=== PATIENT | male | born 1985 | race Caucasian/White ===

== ENCOUNTER 2018-05-24 09:41 | Emergency (ER) | payer OTHER ==
[~2018-05-24] VITALS: Ht 193 cm; Wt 113.4 kg
[~2018-05-24 09:41] MED LIST: COLACE100 MG PO; PERCOCET 5/3251 TAB PO
[2018-05-24] MEDS ORDERED: OSEL75CA PO (11:36)
[2018-05-24] MEDS ORDERED: TUSSI PRES-B L120 M1 PO (11:36)
== END 2018-05-24 11:54 | disposition home or self-care (01) ==
LOC: ER 09:41
DX: B34.9 Viral infection, unspecified (principal)

== ENCOUNTER 2024-01-22 13:38 | Emergency (ER) | payer OTHER ==
[~2024-01-22] VITALS: Ht 195.6 cm; Wt 120.2 kg
[~2024-01-22 13:38] MED LIST changes: +OSEL75CA PO; +TUSSI PRES-B L120 M1 PO
[2024-01-22] MEDS ORDERED: KETOROLAC TROMETHAMINE 30 MG VIAL IM ONE (14:30)
[2024-01-22] MEDS ORDERED: ORPHENADRINE CITRATE 30 MG/ML AMPUL IM ONE (14:30)
[2024-01-22] MEDS ORDERED: ORPHENADRINE CITRATE 30 MG/ML AMPUL ONE (14:37)
[2024-01-22] MEDS ORDERED: KETOROLAC TROMETHAMINE 30 MG VIAL ONE (14:37)
== END 2024-01-22 15:29 | disposition home or self-care (01) ==
LOC: ER 13:39
DX: M54.89 Other dorsalgia (principal)